=== PATIENT | female | born 1990 | race Caucasian/White ===

== ENCOUNTER 2019-05-19 15:56 | Emergency (ER) | payer BC, SELFPAY ==
[2019-05-19 16:03] VITALS: BP 146/100; PULSE 126; RESP 18; TEMP 37.1; O2SAT 99; BMI 28.8
--- NOTE | 2019-05-19 16:11 | XRR_ITS ---
PROCEDURE INFORMATION: Exam: XR Thoracic Spine, 3 Views Exam date and time: 05/19/2019 4:12 PM Age: 29 years old Clinical indication: Injury or trauma; Fall; Initial encounter; Blunt trauma (contusions or hematomas); Additional info: Fall; Back pain TECHNIQUE: Imaging protocol: XR of the thoracic spine, 3 views. COMPARISON: No relevant prior studies available. FINDINGS: Vertebrae: Idiopathic S-shaped scoliosis. Possible osteopenia/osteoporosis. Soft tissues: Normal. XR/XR thoracic spine 3V* [id number] IMPRESSION: 1. Idiopathic S-shaped scoliosis. 2. Possible osteopenia/osteoporosis. 3. No acute findings. 4. If pain persists, CT may be helpful to rule out occult pathology if clinically indicated.
--- NOTE | 2019-05-19 16:12 | ED_ITS ---
Documented by User: [email or web address] Olivares 05/20/19 07:55 HPI - Back Pain/Injury General: Chief Complaint: Back Pain/Injury Stated Complaint: back pain Time Seen by Provider: 05/19/19 16:01 Source: patient Mode of arrival: ambulatory Limitations: no limitations History of Present Illness: HPI Narrative: Patient is a very nice 29-year-old female who presents to ED today with complaints of mid back pain following a fall that occurred 3 days ago. Patient states she was being attacked by a rooster and was walking backwards and tried to kick the rooster at the same time and fell onto her back. Patient did not notice immediate pain. She states she woke up the following day and felt a little sore however throughout the day progressively worsened. She is not having any chest pain, shortness of breath, difficulty breathing. Pain in her back is worse with range of motion of her shoulders. No other injury sustained. MD elicited complaint: back pain Pertinent past history: recent trauma Onset (ago): day(s) Timing: progressively worsening Severity: moderate Similar Symptoms Previously: No Location: thoracic spine Radiation: none Exacerbating factors: movement, deep breaths and other (movement of shoulders ) Relieving factors: immobilization Context: fall Associated symptoms: Reports no associated symptoms; Deny abdominal pain, chills, fatigue, fever(s), hematuria, nausea, syncope or vomiting Treatments prior to arrival: NSAIDS Work related injury: No Review of Systems Const: Denies: fever, chills, fatigue or malaise Eyes: Denies: change in vision, blurry vision, photophobia, floaters or seeing flashes ENMT: Denies: painful swallowing Card: Denies: chest pain, palpitations, irregular heart rhythm, edema, lightheadedness, syncope, pre-syncope, shortness of breath on exertion or shortness of breath when lying down Resp: Denies: shortness of breath, productive cough, non-productive cough, coughing up blood or chest congestion GI: Denies: abdominal pain, nausea or vomiting : Denies: flank pain or blood in urine Musc: Reports: back pain; Denies: neck pain, extremity pain, extremity swelling, joint pain, joint swelling, joint stiffness, limited range of motion or muscle weakness Neuro: Denies: numbness in extremities, weakness in extremities or changes in sensation PFSH ED PFSH: Social History Smoking and tobacco status: former smoker Physical Exam Const: COMMON NORMALS: no apparent distress, average body habitus, oriented x3, no limitations, healthy appearing, alert and well nourished Chest: COMMONS NORMALS: inspection of chest normal and palpation of chest normal Resp: COMMON NORMALS: normal respiratory effort and clear to auscultation bilaterally AUSCULTATION: clear to auscultation bilaterally Cardio: COMMON NORMALS: regular rate and regular rhythm RATE: regular rate RHYTHM: regular rhythm : COMMON NORMALS: Yes no CVA tenderness BLADDER/KIDNEY EXAM: Yes no CVA tenderness Back/Pelvis: COMMON NORMALS: no CVA tenderness and straight leg raise negative bilaterally THORACIC SPINE/UPPER BACK: Yes thoracic spinal tenderness (mid thoracic; between scapula ) and Yes paraspinal muscle tenderness Thoracic paraspinal muscle tenderness: left LUMBAR SPINE/LOWER BACK: Yes normal to inspection, No lumbar spinal tenderness and No paraspinal muscle tenderness PELVIS: Yes buttocks normal SACROILIAC JOINTS: Yes SI joints normal Extremity: COMMON NORMALS: normal to inspection and full ROM GENERAL: Yes normal exam except as noted Neuro: COMMON NORMALS: oriented x3 SENSORIUM/ORIENTATION: Yes alert Skin: COMMON NORMALS: no rashes or lesions noted GENERAL SKIN EXAM: no rashes or lesions noted Course Vital Signs: Vital signs: Vital Signs Temperature 98.7 F 05/19/19 16:03 Pulse Rate 95 05/19/19 18:29 Respiratory Rate 20 H 05/19/19 18:29 Blood Pressure 118/87 05/19/19 18:29 Pulse Oximetry 97 05/19/19 18:29 Discharge Plan Discharge Patient Disposition: Home, Self-Care Clinical Impression: Back contusion Qualifiers: Encounter type: initial encounter Laterality: unspecified laterality Qualified Code(s): S20.229A - Contusion of unspecified back wall of thorax, initial encounter Condition: Stable Prescriptions: New ketorolac 10 mg tablet 10 mg PO TID PRN (Reason: pain) 3 Days Qty: 10 RF: 0 No Action bupropion HCl 150 mg tablet sustained-release 12 hr 150 mg PO BID RF: 0 medroxyprogesterone 150 mg/mL suspension 150 mg IM Q90D RF: 0 Discharge Orders: Discharge Order (Routine); Ordered 05/19/19 Ordered By: Meng Donnelly Discharge Diet: Usual diet Discharge Activity: Increase activity as tolerated Patient Instructions: Contusion in Adults (ED) Activity Restrictions/Additional Instructions: Follow-up with medical provider as directed. Take medications as prescribed. Return to the ER or your medical provider if condition worsens. Please read and understand discharge instructions. If any questions ask please. Discharge Date/Time: 05/19/19 18:32 Coding Level of Care Code ED Gluing Crew Leader for Chg Fwd Exam Comprehensive Documented by User: [email or web address] Myers 05/19/19 21:08 HPI - Back Pain/Injury General: Chief Complaint: Back Pain/Injury Stated Complaint: back pain Time Seen by Provider: 05/19/19 16:01 PFS ED PFSH: Social History Smoking and tobacco status: former smoker Course Vital Signs: Vital signs: Vital Signs Temperature 98.7 F 05/19/19 16:03 Pulse Rate 95 05/19/19 18:29 Respiratory Rate 20 H 05/19/19 18:29 Blood Pressure 118/87 05/19/19 18:29 Pulse Oximetry 97 05/19/19 18:29 Discharge Plan Discharge Patient Disposition: Home, Self-Care Clinical Impression: Back contusion Qualifiers: Encounter type: initial encounter Laterality: unspecified laterality Qualified Code(s): S20.229A - Contusion of unspecified back wall of thorax, initial encounter Condition: Stable Prescriptions: New ketorolac 10 mg tablet 10 mg PO TID PRN (Reason: pain) 3 Days Qty: 10 RF: 0 No Action bupropion HCl 150 mg tablet sustained-release 12 hr 150 mg PO BID RF: 0 medroxyprogesterone 150 mg/mL suspension 150 mg IM Q90D RF: 0 Discharge Orders: Discharge Order (Routine); Ordered 05/19/19 Ordered By: Meng Donnelly Discharge Diet: Usual diet Discharge Activity: Increase activity as tolerated Patient Instructions: Contusion in Adults (ED) Activity Restrictions/Additional Instructions: Follow-up with medical provider as directed. Take medications as prescribed. Return to the ER or your medical provider if condition worsens. Please read and understand discharge instructions. If any questions ask please. Discharge Date/Time: 05/19/19 18:32 Coding Level of Care Code ED Gluing Crew Leader for Johnie Fwd Exam Comprehensive
[2019-05-19] MEDS: ondansetron 2 mg/ML SDV 2 mL 4 MG IVP (16:26)
[2019-05-19 16:27] VITALS: RESP 18
[2019-05-19] MEDS: morphine 4 mg/mL SDV 1 mL IVP (16:27)
[2019-05-19 18:29] VITALS: BP 118/87; PULSE 95; RESP 20; O2SAT 97
== END 2019-05-19 18:32 | disposition home or self-care (01) ==
PROVIDERS: Emergency Provider Nurse Practitioner Family
DX: S20.229A Contusion of unspecified back wall of thorax, initial encounter (principal); W01.0XXA Fall on same level from slipping, tripping and stumbling without subsequent striking against object, initial encounter; Z87.891 Personal history of nicotine dependence
CPT/HCPCS: 12345; 72072; 96374; 96375; 99281; 99283; J2270; J2405

== ENCOUNTER → 2021-12-22 11:52 | Outpatient (BNVA) | payer BC, SELFPAY | PROVIDERS: PCP Family Medicine; Visit Provider Family Medicine | DX: Z01.419 Encounter for gynecological examination (general) (routine) without abnormal findings (principal); N89.8 Other specified noninflammatory disorders of vagina; Z78.9 Other specified health status | CPT/HCPCS: 87624 ==

== ENCOUNTER → 2022-04-05 17:02 | Outpatient (BNVA) | payer BC, SELFPAY | PROVIDERS: PCP Family Medicine; Visit Provider Family Medicine | DX: Z20.2 Contact with and (suspected) exposure to infections with a predominantly sexual mode of transmission (principal) | CPT/HCPCS: 86592 ==

== ENCOUNTER → 2022-10-13 10:55 | Outpatient (BNVA) | payer BC, SELFPAY | PROVIDERS: PCP Family Medicine; Visit Provider Clinical Nurse Specialist Adult Health | DX: N39.0 Urinary tract infection, site not specified (principal) | CPT/HCPCS: 81000; 87086 ==

== ENCOUNTER → 2022-11-29 13:14 | Outpatient (BNVA) | payer BC, SELFPAY | PROVIDERS: PCP Family Medicine; Visit Provider Family Medicine | DX: Z51.81 Encounter for therapeutic drug level monitoring (principal); Z13.220 Encounter for screening for lipoid disorders; Z01.419 Encounter for gynecological examination (general) (routine) without abnormal findings | CPT/HCPCS: 80053; 80061; 85025 ==

== ENCOUNTER 2023-07-25 13:11 | Outpatient (CLI) | payer BC, SELFPAY ==
--- NOTE | 2023-07-25 13:15 | XRR_ITS ---
PROCEDURE INFORMATION: Exam: XR Left Ankle Exam date and time: 07/25/2023 1:19 PM Age: 33 years old Clinical indication: Injury or trauma; Fall; Blunt trauma; Ankle; Left; Additional info: Left lateral ankle pain after fall TECHNIQUE: Imaging protocol: Radiologic exam of the left ankle. Views: 3 or more views. COMPARISON: No relevant prior studies available. FINDINGS: Bones/joints: Normal. No acute osseous, joint, or soft tissue abnormality. Soft tissues: Normal. XR/XR ankle LT min 3V* [id number] IMPRESSION: No acute findings.
== END 2023-07-25 13:12 | disposition home or self-care (01) ==
LOC: RAD 13:12
PROVIDERS: PCP Family Medicine; Visit Provider Family Medicine
DX: M25.572 Pain in left ankle and joints of left foot (principal)
CPT/HCPCS: 73610

== ENCOUNTER → 2023-11-28 13:04 | Outpatient (BNVA) | payer BC, SELFPAY | PROVIDERS: PCP Family Medicine; Visit Provider Family Medicine | DX: R19.8 Other specified symptoms and signs involving the digestive system and abdomen (principal) | CPT/HCPCS: 87070 ==

== ENCOUNTER → 2024-07-17 11:16 | Outpatient (BNVA) | payer BC, SELFPAY | PROVIDERS: PCP Family Medicine; Visit Provider Family Medicine | DX: Z01.419 Encounter for gynecological examination (general) (routine) without abnormal findings (principal) | CPT/HCPCS: 87624 ==